=== PATIENT | male | born 1985 | race Caucasian/White ===

== ENCOUNTER 2016-09-14 04:08 | Emergency (ER) | payer OTHER | END 2016-09-14 04:34 | disposition left against medical advice (07) | LOC: JER 04:08 | DX: Z53.21 Procedure and treatment not carried out due to patient leaving prior to being seen by health care provider (principal) | CPT/HCPCS: 99281-25 ==

== ENCOUNTER 2016-09-16 04:19 | Emergency (ER) | payer OTHER ==
[2016-09-16 04:47] VITALS: BMI 24.3
--- NOTE | 2016-09-16 05:30 | PDOC ---
History of Present Illness - General History Source: Patient Exam Limitations: No Limitations - History of Present Illness Initial Comments: 09/16/16 05:47 The patient is a 30 year old male, otherwise healthy, who presents to the ER with sore throat and fever for one week. Patients significant other is at bedside. Patient went to his doctor for his symptoms, was told he has strep, and was prescribed Augmentin. Symptoms have persisted. Patient reports he is not able to swallow or eat anything. Denies nausea, vomiting, abdominal pain Denies cough Denies chest pain, shortness of breath <Yaima Henson - Last Filed: 09/16/16 06:08> <Carly Livingston - Last Filed: 09/17/16 22:51> - General Chief Complaint: Sore Throat Stated Complaint: FEVER, PAIN Time Seen by Provider: 09/16/16 05:29 Past History <Yaima Henson - Last Filed: 09/16/16 06:08> - Psycho/Social/Smoking Cessation Hx Suicidal Ideation: No Smoking History: Never smoked Have you smoked in the past 12 months: No Information on smoking cessation initiated: No Hx Alcohol Use: No Drug/Substance Use Hx: No <Carly Livingston - Last Filed: 09/17/16 22:51> - Past Medical History Allergies/Adverse Reactions: Allergies Allergy/AdvReac Type Severity Reaction Status Date / Time No Known Allergies Allergy Verified 09/16/16 04:44 Home Medications: Ambulatory Orders Clindamycin [Cleocin -] 300 mg PO TID #21 capsule 09/16/16 Review of Systems - Review of Systems Able to Perform ROS?: Yes Comments:: 09/16/16 05:47 CONSTITUTIONAL: Present: (+) fever Absent: no chills, no fatigue EYES: Absent: visual changes ENT: Present: (+) sore throat Absent: ear pain CARDIOVASCULAR: Absent: chest pain, no palpitations RESPIRATORY: Absent: cough, no SOB GI: Absent: abdominal pain, no nausea, no vomiting, no constipation, no diarrhea GENITOURINARY: Absent: dysuria, no frequency, no hematuria MUSCULOSKELETAL: Absent: back pain, no arthralgia, no myalgia SKIN: Absent: rash NEURO: Absent: headache <AnikasYaima - Last Filed: 09/16/16 06:08> *Physical Exam - Vital Signs Last Vital Signs Temp Pulse Resp BP Pulse Ox 100.2 F H 91 H 20 145/89 98 09/16/16 04:46 09/16/16 04:46 09/16/16 04:46 09/16/16 04:46 09/16/16 04:46 - Physical Exam Comments: 09/16/16 05:48 GENERAL: Well-appearing, well-nourished. In moderate distress. HEENT: No swelling. No SURGICAL GARMENT INSPECTOR. Pharynx erythematous bilaterally. Normocephalic, atraumatic. PERRL, EOM intact. CARDIOVASCULAR: Normal S1, S2. Regular rate and rhythm. PULMONARY: Clear to auscultation bilaterally. ABDOMEN: Soft, non-distended, non-tender. EXTREMITIES: Normal ROM in all four extremities. No gross deformities. SKIN: Warm, dry. No rash NEUROLOGICAL: No focal neurological deficits. <Yaima Henson - Last Filed: 09/16/16 06:08> - Vital Signs Last Vital Signs Temp Pulse Resp BP Pulse Ox 100.2 F H 91 H 20 145/89 98 09/16/16 04:46 09/16/16 04:46 09/16/16 04:46 09/16/16 04:46 09/16/16 04:46 <Carly Livingston - Last Filed: 09/17/16 22:51> ED Treatment Course - LABORATORY CBC & Chemistry Diagram: 09/16/16 05:55 09/16/16 05:55 <Carly Livingston - Last Filed: 09/17/16 22:51> Medical Decision Making - Medical Decision Making 09/16/16 06:40 Pt was given augmentin for a sore throat. Now he feels worse after taking several day course. Pt has pain in his throat and cannot eat; he is dehydrated. Pt will have labs drawn and IVNSS. He is awaiting soft tissue XR of his throat. Pt will be signed out to the morning ER doc <Carly Livingston - Last Filed: 09/17/16 22:51> *DC/Admit/Observation/Transfer - Attestations Scribe Attestion: 09/16/16 05:49 Documentation prepared by Yaima Henson, acting as medical records custodian for Carly Livingston MD. <Yaima Henson - Last Filed: 09/16/16 06:08> <LivingstonCarly calzada - Last Filed: 09/17/16 22:51> Diagnosis at time of Disposition: Pharyngitis - Discharge Dispostion Disposition: HOME Condition at time of disposition: Stable - Prescriptions Prescriptions: Clindamycin [Cleocin -] 300 mg PO TID #21 capsule - Patient Instructions Printed Discharge Instructions: DI for Pharyngitis/Tonsillopharyngitis -- Adult Additional Instructions: You are being discharged on clindamycin 300 mg 1 tablet 3 times per day for one week for a pharyngitis. Please follow-up with your primary care physician within one week and return to the emergency department if your symptoms persist , worsen, or new symptoms arise.
[2016-09-16] MEDS ORDERED: SODIUM CHLORIDE 0.9% 500 ML INFUS.BAG IV ONE (05:37)
[2016-09-16] MEDS ORDERED: CLINDAMYCIN 600MG PREMIX IVPB 50 ML IVPB ONE ×2 (05:37→05:48)
[2016-09-16] MEDS ORDERED: KETOROLAC TROMETHAMINE 30 MG/1 ML VIAL IVPUSH ONE (05:37)
[2016-09-16] MEDS ORDERED: ACETAMINOPHEN 325 MG TABLET (FP) PO ONE (05:38)
[2016-09-16] MEDS ORDERED: ACETAMINOPHEN 325 MG TABLET (FP) ONE (05:48)
[2016-09-16] MEDS ORDERED: KETOROLAC TROMETHAMINE 30 MG/1 ML VIAL ONE (05:48)
[2016-09-16] MEDS ORDERED: IBUPROFEN 600 MG TABLET (FP) PO ONE (05:48)
[2016-09-16] MEDS ORDERED: ACETAMINOPHEN 1000 MG/100 ML VIAL (NON FORMULARY) IVPB ONE (06:01)
[2016-09-16] MEDS ORDERED: ACETAMINOPHEN INJECTION 100 ML IVPB ONE (06:04)
[2016-09-16 06:23] LABS: BASOPHIL 0.2 % (0-2.0); EOSINOPHIL 0.6 % (0-4.5); MCHC 34.4 g/dl (32.0-35.9); MEAN CELL VOLUME 84.3 fl (80-96); MEAN PLT VOLUME 8.5 fl (7.5-11.1); PLATELET COUNT 216 K/MM3 (134-434); RDW 13.1 % (11.9-15.9); WHITE BLOOD COUNT 12.6 K/mm3 (4.0-10.0)
[2016-09-16 06:43] LABS: ANION GAP 11 (8-16); BILIRUBIN,TOTAL 0.9 mg/dL (0.2-1.0); CALCIUM 8.6 mg/dL (8.5-10.1); CO2 27 mmol/L (21-32); COCKROFT - GAULT 137.33; CREATININE 0.8 mg/dL (0.7-1.3); GLUCOSE,RANDOM 102 mg/dL (74-106); SGOT/AST 16 U/L (15-37); SGPT/ALT 33 U/L (12-78); TOT PROT 7.2 g/dl (6.4-8.2)
[2016-09-16 06:44] LABS: ALK PHOS 61 U/L (45-117)
--- NOTE | 2016-09-16 10:38 | PDOC ---
*Physical Exam - Vital Signs Last Vital Signs Temp Pulse Resp BP Pulse Ox 100.2 F H 91 H 20 145/89 98 09/16/16 04:46 09/16/16 04:46 09/16/16 04:46 09/16/16 04:46 09/16/16 04:46 ED Treatment Course - LABORATORY CBC & Chemistry Diagram: 09/16/16 05:55 09/16/16 05:55 - ADDITIONAL ORDERS Additional order review: Laboratory Results 09/16/16 05:55 Sodium 140 Potassium 4.0 Chloride 102 Carbon Dioxide 27 Anion Gap 11 BUN 10 Creatinine 0.8 Creat Clearance w eGFR > 60 Random Glucose 102 Calcium 8.6 Total Bilirubin 0.9 AST 16 ALT 33 Alkaline Phosphatase 61 Total Protein 7.2 Albumin 4.0 09/16/16 05:55 RBC 5.42 MCV 84.3 MCHC 34.4 RDW 13.1 MPV 8.5 Neutrophils % 79.0 Lymphocytes % 9.5 Monocytes % 10.7 H Eosinophils % 0.6 Basophils % 0.2 - Medications Given in the ED: ED Medications Discontinued Medications Generic Name Dose Route Start Last Admin Trade Name Juan Antonio PRN Reason Stop Dose Admin Acetaminophen 650 mg 09/16/16 05:38 09/16/16 06:04 Tylenol - PO 09/16/16 05:39 Not Given ONCE ONE Acetaminophen 1,000 mg 09/16/16 06:01 09/16/16 06:08 Ofirmev Injection - IVPB 09/16/16 06:02 1,000 mg ONCE ONE Administration Clindamycin Phosphate 50 mls @ 100 mls/hr 09/16/16 05:37 09/16/16 06:03 Cleocin 600 Mg Premix Ivpb - IVPB 09/16/16 06:06 100 mls/hr ONCE ONE Administration Ketorolac Tromethamine 30 mg 09/16/16 05:37 09/16/16 06:03 Toradol Injection - IVPUSH 09/16/16 05:38 30 mg ONCE ONE Administration Sodium Chloride 1,000 ml 09/16/16 05:37 09/16/16 06:03 Normal Saline - IV 09/16/16 05:38 1,000 ml ONCE ONE Administration Progress Note - Progress Note Progress Note: The patient was endorsed to me at [address] Delgadillo pending labs and x-rays of the chest and soft tissue neck. I have reviewed all of the lab work and have noted in the EMR. I've also discussed the lab results with the patient. I have reevaluated him at this time. He is feeling improved and was able to tolerate solid food without difficulty, nausea, vomiting, drooling. The plan is to discharge the patient on clindamycin 300 mg 3 times a day for 7 days, follow-up with primary care physician and return to the emergency department if symptoms persist, worsen, or new symptoms arise. *DC/Admit/Observation/Transfer Diagnosis at time of Disposition: Pharyngitis - Discharge Dispostion Disposition: HOME Condition at time of disposition: Stable Admit: No - Prescriptions Prescriptions: Clindamycin [Cleocin -] 300 mg PO TID #21 capsule - Patient Instructions Printed Discharge Instructions: DI for Pharyngitis/Tonsillopharyngitis -- Adult Additional Instructions: You are being discharged on clindamycin 300 mg 1 tablet 3 times per day for one week for a pharyngitis. Please follow-up with your primary care physician within one week and return to the emergency department if your symptoms persist , worsen, or new symptoms arise.
[2016-09-16 11:31] VITALS: BP 111/62; PULSE 81; TEMP 98.5
== END 2016-09-16 11:12 | disposition home or self-care (01) ==
LOC: JER 04:19
PROC: 3E0333Z Introduction of Anti-inflammatory into Peripheral Vein, Percutaneous Approach (ICD-10-PCS; principal; 2016-09-16)
PROC: 3E033NZ Introduction of Analgesics, Hypnotics, Sedatives into Peripheral Vein, Percutaneous Approach (ICD-10-PCS; 2016-09-16)
PROC: 3E03329 Introduction of Other Anti-infective into Peripheral Vein, Percutaneous Approach (ICD-10-PCS; 2016-09-16)
DX: J02.9 Acute pharyngitis, unspecified (principal)
CPT/HCPCS: 36415; 70360-TC; 71020-TC; 80053; 85025; 86308; 99282-25